=== PATIENT | male | born 1970 | race Caucasian/White ===

== ENCOUNTER → 2016-08-04 | Day surgery (SDC) | payer SELFPAY ==
[2016-08-01 10:48] LABS: BASO % 0.6 % (0.0-1.0); EOS # 0.2 10*3/uL (0.0-0.4); EOS % 2.3 % (1.0-4.0); HEMATOCRIT 46.2 % (42.0-52.0); HEMOGLOBIN 15.9 g/dl (14.0-18.0); LYMPH # 1.8 10*3/uL (1.3-4.4); LYMPH % 26.4 % (27.0-41.0); MEAN CELL VOLUME 85.9 fl (80.0-94.0); MEAN CORPUSCULAR HGB 29.6 pg (27.0-31.0); MEAN CORPUSCULAR HGB CONC 34.4 g/dl (33.0-37.0); MONO # 0.5 10*3/uL (0.1-1.0); MONO % 7.3 % (3.0-9.0); NEUT # 4.3 10*3/uL (2.3-7.9); NEUT % 63.1 % (47.0-73.0); PLATELET COUNT AUTOMATED 260 10*3/uL (130-400); RED BLOOD COUNT 5.38 10*6/uL (4.50-5.90); RED CELL DISTRI WIDTH 12.7 % (0-14.5); WHITE BLOOD COUNT 6.9 10*3/uL (4.8-10.8)
[2016-08-01 10:49] LABS: BILIRUBIN NEGATIVE (NEGATIVE); BLOOD NEGATIVE (NEGATIVE); CLARITY CLEAR (CLEAR); COLOR YELLOW (YELLOW); GLUCOSE NEGATIVE (NEGATIVE); KETONE NEGATIVE (NEGATIVE); LEUKO ESTERASE NEGATIVE (NEGATIVE); NITRITE NEGATIVE (NEGATIVE); PROTEIN NEGATIVE (NEGATIVE); SPECIFIC GRAVITY 1.025 (1.005-1.030); UROBILINOGEN 0.2 E.U./dl (0.2-1.0)
[2016-08-01 11:13] LABS: BUN 13 mg/dl (7-24); CARBON DIOXIDE 27 mmol/L (21-32); CHLORIDE 104 mmol/L (98-107); EST GLOM FILT AFRICAN AMERICAN > 60 ml/min; GLUCOSE 140 mg/dL (65-99); POTASSIUM 4.2 mmol/L (3.5-5.1); PROTHROMBIN TIME 10.4 SECONDS (9.0-12.4); SODIUM 140 mmol/L (136-145)
[2016-08-01 11:19] LABS: MUCOUS TRACE; WBC 0-2 wbc/hpf (0-5)
[2016-08-04] VITALS (7 sets, daily range): BP systolic 118–150; BP diastolic 71–85
[~2016-08-04] MED LIST: ASPIRIN325 MG PO; AUGMENTIN 875-875 MG PO; AUGMENTIN 875875 MG PO; MEDROL DOSEPAK4 MG PO; MOTRIN800 MG PO; NORCO 5-325 TA1 EACH PO; NOVOLOG 70/30 M10 ML SC; VICODIN ES 7501 TAB PO
--- NOTE | ~2016-08-04 | O ---
[place], [place] OPERATIVE NOTE [id number] UNIT #: [id number] ROOM: DOCTOR: CLEMENTE ALEXANDRA MD BIRTHDATE: [birth year] DOS: 08/04/2016 PREOPERATIVE DIAGNOSIS: Umbilical hernia. POSTOPERATIVE DIAGNOSIS: Umbilical hernia. PROCEDURE: Umbilical hernia repair with mesh (Ventralex, small). SURGEON: Clemente Alexandra MD [employer]: MS3. ANESTHESIA: General with endotracheal intubation. INDICATIONS: This is a 46-year-old gentleman who is here for a symptomatic umbilical hernia. The procedure and its complications were explained to the patient in detail preoperatively. Complications that were discussed included but were not limited to bleeding, infection, hematoma/seroma/abscess formation, prolonged postoperative pain, damage to underlying vital structures and recurrence, agreed to proceed. DESCRIPTION OF PROCEDURE: After identifying the patient, the patient was brought to the operating suite and laid in the supine position. After induction of general anesthesia, the parts were painted and draped in the usual sterile fashion and a time-out procedure was called. An incision was marked in the circumlinear fashion below the umbilicus. The skin was incised with the help of a knife and deepened in layers with the help of electrocautery. The hernial sac was incised and was found to contain some omentum, which were taken down with the help of electrocautery. The hernial sac was excised and sent for histopathological diagnosis. The fascial defect was found to be approximately 0.5 cm. A small Ventralex mesh was brought in and placed under the fascia and sutured to the overlying fascia with the help of 2-0 Prolene in an interrupted fashion. The fascial defect itself was then approximated with the help of interrupted 0 PDS in an interrupted fashion. Thereafter, the subcutaneous tissue was irrigated and approximated with the help of 3-0 Vicryl in a running fashion and the skin edges were infiltrated with local anesthesia (1% plain lidocaine) and approximated with the help of 4-0 Vicryl in a running fashion. Dressing was placed. The patient tolerated the procedure well and was taken to the recovery room after uneventful extubation. Dr. Clemente Alexandra, the attending surgeon, was present throughout the operating case. [place], [place] OPERATIVE NOTE NAME: KETAN SLADE UNIT #: [id number] ROOM: DOCTOR: CLEMENTE ALEXANDRA MD BIRTHDATE: [birth year] Clemente Alexandra MD CM:OPRECORD:OPERATIVE NOTE [id number] CLEMENTE ALEXANDRA MD 08/04/16 1325 interface
== END | disposition home or self-care (01) ==
LOC: SDC 08-01 10:15
PROVIDERS: Surgery
DX: K42.9 Umbilical hernia without obstruction or gangrene (principal); E11.9 Type 2 diabetes mellitus without complications; Z79.4 Long term (current) use of insulin; Z83.3 Family history of diabetes mellitus; F17.210 Nicotine dependence, cigarettes, uncomplicated

== ENCOUNTER → 2023-04-15 | Outpatient (CLI) | payer BC ==
[2023-04-15 08:07] LABS: BASO % 0.6 % (0.0-1.0); EOS # 0.3 10*3/uL (0.0-0.4); EOS % 6.5 % (1.0-4.0); HEMATOCRIT 46.1 % (42.0-52.0); LYMPH # 1.7 10*3/uL (1.3-4.4); LYMPH % 32.5 % (27.0-41.0); MEAN CELL VOLUME 86.7 fl (80.0-94.0); MEAN CORPUSCULAR HGB 29.1 pg (27.0-31.0); MEAN CORPUSCULAR HGB CONC 33.6 g/dl (33.0-37.0); MEAN PLATELET VOLUME 9.7 fl (9.6-12.3); MONO # 0.4 10*3/uL (0.1-1.0); NEUT # 2.7 10*3/uL (2.3-7.9); PLATELET COUNT AUTOMATED 262 10*3/uL (130-400); RED BLOOD COUNT 5.32 10*6/uL (4.50-5.90); RED CELL DISTRI WIDTH 11.9 % (0-14.5); WHITE BLOOD COUNT 5.2 10*3/uL (4.8-10.8)
[2023-04-15 09:23] LABS: ALKALINE PHOSPHATASE 91 U/L (46-116); BUN 11 mg/dl (9-23); CHLORIDE 101 mmol/L (98-107); SGPT/ALT 15 U/L (5-49)
== END | disposition home or self-care (01) ==
LOC: LAB 07:35
PROVIDERS: Student in an Organized Health Care Education/Training Program; ATTEND Nurse Practitioner Family
DX: R06.02 Shortness of breath (principal); F17.210 Nicotine dependence, cigarettes, uncomplicated; R05.8 Other specified cough

== ENCOUNTER → 2023-04-26 | Outpatient (CLI) | payer BC ==
[~2023-04-26] MED LIST changes: +FAMOTIDINE PO; -NOVOLOG 70/30 M10 ML SC; +NOVOLOG MIX 70/33 ML SC
== END | disposition home or self-care (01) ==
LOC: CARD 02:21
PROVIDERS: ATTEND Internal Medicine Cardiovascular Disease
DX: R06.02 Shortness of breath (principal)

== ENCOUNTER → 2023-04-27 | Outpatient (CLI) | payer BC | END | disposition home or self-care (01) | LOC: RESCLI 13:14 | PROVIDERS: ATTEND Internal Medicine | DX: E11.65 Type 2 diabetes mellitus with hyperglycemia (principal); I10 Essential (primary) hypertension; K21.9 Gastro-esophageal reflux disease without esophagitis; J31.0 Chronic rhinitis; E78.00 Pure hypercholesterolemia, unspecified; Z82.49 Family history of ischemic heart disease and other diseases of the circulatory system; Z87.891 Personal history of nicotine dependence; Z79.899 Other long term (current) drug therapy ==

== ENCOUNTER → 2023-05-03 | Outpatient (CLI) | payer BC | LOC: CARD 10:06 | PROVIDERS: ATTEND Family Medicine | DX: I51.7 Cardiomegaly (principal) ==